=== PATIENT | female | born 1975 | race Caucasian/White ===

== ENCOUNTER 2020-02-27 23:23 | Emergency (ER) | payer BC ==
[~2020-02-27] VITALS: Ht 170.2 cm; Wt 58.1 kg
--- NOTE | 2020-02-27 23:33 | NUR ---
DR. SLATER AT BEDSIDE FOR MSE
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
[2020-02-27] MEDS ORDERED: ACETAMINOPHEN ES 500 MG TABLET ONE (23:39)
--- NOTE | 2020-02-27 23:43 | NUR ---
PT OUT OF ER FOR CT
[2020-02-27] MEDS ORDERED: ACETAMINOPHEN 325 MG TABLET PO ONE (23:45)
--- NOTE | 2020-02-27 23:47 | NUR ---
PT BACK FROM CT
--- NOTE | 2020-02-28 00:19 | NUR ---
Patient discharged to home in stable condition. Written and verbal after care instructions given. Patient verbalizes understanding of instructions. Stressed follow up or return to ER for worsening s/s. AMBULATE WITH STEADY GAIT AA/OX4. ABLE TO SPEAK IN COMPLETE SENTENCES. FOLLOWS COMMANDS RESPIRATION EVEN AND UNLABORED NO S/S OF DISTRESS NO CARDIOVASCULAR DISTRESS NOTED DENIES N/V/D Addendum: 02/28/20 at 0035 by TIFFANI Patient discharged to home in stable condition. Written and verbal after care instructions given. Patient verbalizes understanding of instructions. Stressed follow up or return to ER for worsening s/s. AMBULATE WITH STEADY GAIT AA/OX4. ABLE TO SPEAK IN COMPLETE SENTENCES. FOLLOWS COMMANDS RESPIRATION EVEN AND UNLABORED NO S/S OF DISTRESS NO CARDIOVASCULAR DISTRESS NOTED DENIES N/V/D PT WILL TAKE [facility]BER HOME
[2020-02-28 00:34] VITALS: BP 114/89
== END 2020-02-28 00:19 | disposition home or self-care (01) ==
LOC: ER 23:32
DX: S09.8XXA Other specified injuries of head, initial encounter (principal); S00.03XA Contusion of scalp, initial encounter; Y04.8XXA Assault by other bodily force, initial encounter; Y92.89 Other specified places as the place of occurrence of the external cause
CPT/HCPCS: 70450; A4663; A9150